=== PATIENT | female | born 1980 | race Caucasian/White ===

== ENCOUNTER 2022-01-14 08:42 | Emergency (ER) | payer OTHER, SELFPAY ==
--- NOTE | ~2022-01-14 | XR_ITS ---
EXAMINATION: XR chest 2V DATE: 01/14/2022 09:17 INDICATION: Shortness of breath. Chest pain. Dizziness. TECHNIQUE: Frontal and lateral views of the chest were obtained. COMPARISON: None. FINDINGS: The chest demonstrates clear lungs without pneumonia, pleural effusion, or pneumothorax. Th e heart size is normal. Surgical clips in the right upper quadrant are likely from cholecystectomy. T here are changes of anterior fusion procedure in cervical spine. IMPRESSION: 1. Normal chest. Reviewed, dictated and finalized at location A. IMPRESSION: 1. Normal chest.
[2022-01-14 08:44] VITALS: BP 131/77; PULSE 92; RESP 18; TEMP 36.6; O2SAT 99
--- NOTE | 2022-01-14 08:47 | ECG_ITS ---
Measurements Intervals [place] Rate: 110 P: 59 [place]: 146 QRS: -5 QRSD: 80 T: -9 QT: 325 QTc: 441 Interpretive Statements SINUS TACHYCARDIA LOW VOLTAGE EKG BASELINE ARTIFACT PRESENT NO PREVIOUS ECG AVAILABLE FOR COMPARISON Electronically Signed On 01-14-2022 16:49:18 CDT by Fe Chun M.D.
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
[2022-01-14 09:24] LABS: Basophils Percent Auto 0.4 % (0.2-1.2); Eosinophils Absolute Auto 0.2 K/mm3 (0-0.3); Eosinophils Percent Auto 1.5 % (0-4.4); Hematocrit 42.9 % (37.0-47.0); Hemoglobin 14.5 g/dL (12.0-15.0); Immature Granulocyte Absolute 0.02 K/mm3 (0.00-0.031); Immature Granulocyte Percent A 0.2 % (0-0.5); Lymphocytes Absolute Auto 1.99 K/mm3 (0.9-3.2); Lymphocytes Percent Auto 20.1 % (18.3-44.2); Mean Corpuscular HGB Conc 33.8 g/dl (32-36); Mean Corpuscular Hemoglobin 29.9 pg (26-34); Mean Corpuscular Volume 88.5 fl (80-100); Monocytes Absolute Auto 0.5 K/mm3 (0.1-0.6); Monocytes Percent Auto 5.1 % (2.6-8.5); Neutrophils Absolute Auto 7.2 K/mm3 (1.3-6.7); Neutrophils Percent Auto 72.7 % (45.5-73.1); Platelet Count Result 351 k/mm3 (150-375); Red Blood Count 4.85 M/mm3 (4.2-5.4); Red Cell Distribution Width 12.5 % (11.5-14.5); White Blood Count 9.9 K/mm3 (4.5-10.0)
--- NOTE | 2022-01-14 09:30 | ED.CHESTPAIN ---
HPI - Chest Pain General Chief Complaint: Chest Pain <YARELI Skaggs Last Filed: 01/14/22 13:31> Stated Complaint: jaw pain <YARELI Skaggs Last Filed: 01/14/22 13:31> Time Seen by Provider: 01/14/22 09:16 <YARELI Skaggs Last Filed: 01/14/22 13:31> Source: patient <YARELI Skaggs Last Filed: 01/14/22 13:31> Mode of arrival: ambulatory <YARELI Skaggs Last Filed: 01/14/22 13:31> Limitations: no limitations <YARELI Skaggs Last Filed: 01/14/22 13:31> History of Present Illness HPI narrative: This is a 41-year-old female that presents to the emergency department for chest pain. Reports intermittent episodes over the last week. Reports this morning her had made her angry. She started to have some substernal chest pain that was sharp in nature. Radiation to the left shoulder and jaw. Reports this lasted for a couple of minutes. Reports history of coronary artery disease and also PEs. She is supposed to be on chronic anticoagulation due to her clotting disorder, but is not due to cost. Denies fever, cough, or lower extremity edema. <Dorota Marrufo PA-C - Last Filed: 01/14/22 13:31> Related Data Home Medications: Home Medications Medication Instructions Recorded Confirmed albuterol sulfate INHALATION 01/14/22 alprazolam [Xanax] 0.5 mg BID 01/14/22 paroxetine HCl [Paxil] 20 mg PO DAILY 01/14/22 rivaroxaban [Xarelto] 20 mg 01/14/22 <YARELI Skaggs Last Filed: 01/14/22 13:31> Allergies/Adverse Reactions: Allergies Allergy/AdvReac Type Severity Reaction Status Date / Time hydromorphone [From Dilaudid] Allergy Anaphylaxis Verified 01/14/22 09:46 <YARELI Skaggs Last Filed: 01/14/22 13:31> Review of Systems Review of Systems: CONSTITUTIONAL: Denies fever CARDIOVASCULAR: Reports chest pain. Denies edema. RESPIRATORY: Denies cough or dyspnea. <Dorota Marrufo PA-C - Last Filed: 01/14/22 13:31> All systems reviewed & are unremarkable except as noted in HPI and below <Dorota Marrufo PA-C - Last Filed: 01/14/22 13:31> PMFSH Past Medical History Medical History: Medical History (Updated 01/14/22 @ 12:54 by Dorota Marrufo PA-C) History of coronary artery disease History of pulmonary embolism <Dorota Marrufo PA-C - Last Filed: 01/14/22 13:31> Social History Social History: Social History (Updated 01/14/22 @ 09:35 by Dorota Marrufo PA-C) Substance use: never <Dorota Marrufo PA-C - Last Filed: 01/14/22 13:31> Exam Narrative: GENERAL: Well-appearing, well-nourished, and in no acute distress. HEAD: Normocephalic, atraumatic. EYES: EOMI. ENT: Mucous membranes moist. Oropharynx without tonsillar hypertrophy exudate or other lesions. NECK: Supple. No adenopathy or masses. No carotid bruits or JVD CHEST: Clear to auscultation. No respiratory distress. No wheezes rales or rhonchi HEART: Regular rate and rhythm. No murmur heard. Normal peripheral pulses. EXTREMITIES: Normal range of motion. No edema. SKIN: Warm, dry, no rash. NEURO: No focal deficits. Alert and oriented x3. PSYCH: Normal mood and affect <Dorota Marrufo PA-C - Last Filed: 01/14/22 13:31> Course Vital Signs Vital signs: Vital Signs Temperature 36.6 C 01/14/22 08:44 Pulse Rate 92 01/14/22 08:44 Respiratory Rate 18 01/14/22 08:44 Blood Pressure 131/77 01/14/22 08:44 Pulse Oximetry 99 01/14/22 08:44 Temperature 36.6 C 01/14/22 08:44 Pulse Rate 91 01/14/22 12:16 Respiratory Rate 18 01/14/22 12:16 Blood Pressure 119/79 01/14/22 12:16 Pulse Oximetry 99 01/14/22 12:16 <Dorota Marrufo PA-C - Last Filed: 01/14/22 13:31> MDM - Chest Pain MDM Narrative Medical decision making narrative: Patient presents to the emergency department for an episode of chest pain today. Her vitals are stable. CBC and metabolic panel without concerning f
[2022-01-14 09:34] LABS: Alanine Aminotransferase 29 U/L (4-35); Albumin Level 4.2 g/dL (3.5-5.1); Alkaline Phosphatase 62 U/L (38-126); Anion Gap 4 mmol/L (8-16); Aspartate Amino Transferase 32 U/L (14-36); Bilirubin,Total 0.5 mg/dL (0.2-1.3); Blood Urea Nitrogen 9 mg/dL (7-17); Calcium 8.9 mg/dL (8.4-10.2); Carbon Dioxide 26 mmol/L (22-30); Chloride 107 mmol/L (98-107); Estimated CRCL calculation 110 ml/min; Estimated Glomerular Filt Rate > 60; Glucose 95 mg/dL (65-110); Lipase 90 U/L (23-300); Potassium 3.8 mmol/L (3.4-5.0); Sodium 137 mmol/L (137-145)
[2022-01-14 09:35] LABS: Partial Thromboplastin Time 25.4 SECONDS (22.3-36.8); Prothrombin Time 12.8 Seconds (11.1-14.7)
[2022-01-14 09:45] LABS: Troponin I < 0.012 ng/mL (0.000-0.034)
[2022-01-14 09:48] LABS: D Dimer 0.28 ug/mL (<0.48)
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
[2022-01-14 10:55] VITALS: BP 113/78; PULSE 73; RESP 16; O2SAT 100
[2022-01-14 11:19] VITALS: BP 119/62; PULSE 83; RESP 20; O2SAT 100
[2022-01-14 11:20] VITALS: PULSE 85
[2022-01-14] MEDS: ALPRAZolam (*CRX) 0.5 MG TABLET PO (11:31)
--- NOTE | 2022-01-14 11:34 | PC.NURSE ---
Pt medicated per request and PA order. Pt states she feels pressure in her chest that radiates to her jaw and arm. States she feels stressed .
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
[2022-01-14 12:16] VITALS: BP 119/79; PULSE 91; RESP 18; O2SAT 99
[2022-01-14 12:20] LABS: Troponin I < 0.012 ng/mL (0.000-0.034)
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
--- NOTE | 2022-01-14 13:22 | PC.NURSE ---
PA and care coordination made aware of elopement.
== END 2022-01-14 13:23 | disposition home or self-care (01) ==
PROVIDERS: Physician Assistant; Emergency Provider Emergency Medicine; PCP Family Medicine
DX: R07.2 Precordial pain (principal); I25.10 Atherosclerotic heart disease of native coronary artery without angina pectoris; Z86.711 Personal history of pulmonary embolism; T45.516A Underdosing of anticoagulants, initial encounter; Z91.120 Patient's intentional underdosing of medication regimen due to financial hardship; R00.0 Tachycardia, unspecified
CPT/HCPCS: 36415; 71046; 80053; 83690; 84484; 85025; 85380; 85610; 85730; 93005; 99284; A9270

== ENCOUNTER 2022-01-14 16:07 | Emergency (ER) | payer OTHER, SELFPAY ==
--- NOTE | ~2022-01-14 | CT_ITS ---
EXAMINATION: CTA chest PE protocol DATE: 01/14/2022 19:13 INDICATION: Chest pain. Factor VIII disorder. TECHNIQUE: Computed tomography (CT) pulmonary angiogram of the chest was performed with 100 mL Omnipa que-350 intravenous contrast. Additional 3D reconstructions utilizing coronal maximum intensity proje ction (MIP) were performed. Automated exposure control and iterative reconstruction technique were em ployed. The dose-length product was 587.57 mGy-cm. COMPARISON: None FINDINGS: Excellent contrast opacification of the pulmonary arteries. There is mild streak artifact from dense contrast in the superior vena cava and right atrium. No significant motion living diagnostic quality study which demonstrates no pulmonary embolism. No pneumonia, pulmonary edema, pleural effusion or pn eumothorax. Heart size is normal. No pericardial effusion. Thoracic aorta is normal in caliber with n o dissection. No pathologically enlarged thoracic lymphadenopathy. Cholecystectomy clips the gallblad nova fossa. C6-C7 anterior spinal fusion with anterior plate and screw fixation. Mild thoracic spondyl osis. IMPRESSION: 1. No pulmonary embolism or other acute cardiopulmonary disease. Reviewed, dictated and finalized at location A.
--- NOTE | 2022-01-14 16:10 | ECG_ITS ---
Measurements Intervals [place] Rate: 119 P: 61 [place]: 135 QRS: 15 QRSD: 81 T: 57 QT: 339 QTc: 478 Interpretive Statements SINUS TACHYCARDIA NONSPECIFIC T-WAVE ABNORMALITY ABNORMAL RHYTHM ECG COMPARED TO ECG 01/14/2022 08:52:16 T-WAVE ABNORMALITY NOW PRESENT Electronically Signed On 01-15-2022 14:09:49 CDT by Kurt Pérez M.D.
[2022-01-14 16:13] VITALS: BP 154/95; PULSE 102; RESP 17; TEMP 36.8; O2SAT 98
[2022-01-14 16:24] LABS: Basophils Absolute Auto 0.1 K/mm3 (0.0-0.1); Basophils Percent Auto 0.4 % (0.2-1.2); Eosinophils Absolute Auto 0.1 K/mm3 (0-0.3); Eosinophils Percent Auto 0.8 % (0-4.4); Hematocrit 43.7 % (37.0-47.0); Hemoglobin 14.7 g/dL (12.0-15.0); Immature Granulocyte Absolute 0.03 K/mm3 (0.00-0.031); Immature Granulocyte Percent A 0.2 % (0-0.5); Lymphocytes Absolute Auto 3.17 K/mm3 (0.9-3.2); Mean Corpuscular HGB Conc 33.6 g/dl (32-36); Mean Corpuscular Hemoglobin 30.3 pg (26-34); Mean Corpuscular Volume 90.1 fl (80-100); Mean Platelet Volume 9.3 fl (7.4-10.4); Monocytes Absolute Auto 0.5 K/mm3 (0.1-0.6); Monocytes Percent Auto 3.6 % (2.6-8.5); Neutrophils Absolute Auto 9.4 K/mm3 (1.3-6.7); Platelet Count Result 400 k/mm3 (150-375); Red Blood Count 4.85 M/mm3 (4.2-5.4); Red Cell Distribution Width 12.4 % (11.5-14.5); White Blood Count 13.2 K/mm3 (4.5-10.0)
[2022-01-14 16:33] LABS: Alanine Aminotransferase 29 U/L (4-35); Albumin Level 4.6 g/dL (3.5-5.1); Alkaline Phosphatase 62 U/L (38-126); Anion Gap 8 mmol/L (8-16); Aspartate Amino Transferase 29 U/L (14-36); Bilirubin,Total 0.4 mg/dL (0.2-1.3); Blood Urea Nitrogen 7 mg/dL (7-17); Calcium 9.3 mg/dL (8.4-10.2); Carbon Dioxide 22 mmol/L (22-30); Chloride 108 mmol/L (98-107); Estimated CRCL calculation 109 ml/min; Estimated Glomerular Filt Rate > 60; Glucose 148 mg/dL (65-110); Lipase 91 U/L (23-300); Potassium 3.3 mmol/L (3.4-5.0); Prothrombin Time 13.1 Seconds (11.1-14.7); Sodium 138 mmol/L (137-145)
[2022-01-14 16:34] LABS: Partial Thromboplastin Time 26.2 SECONDS (22.3-36.8)
[2022-01-14 16:45] LABS: Troponin I < 0.012 ng/mL (0.000-0.034)
[2022-01-14 17:46] VITALS: BP 126/72; PULSE 89; RESP 16; O2SAT 99
[2022-01-14 18:01] VITALS: BP 124/79; PULSE 90
[2022-01-14 18:16] VITALS: BP 135/81; PULSE 96
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
[2022-01-14 18:37] VITALS: BP 133/77; PULSE 82; O2SAT 100
[2022-01-14] MEDS: LORazepam (*CRX) 1 MG TABLET PO (18:47)
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
[2022-01-14 19:47] LABS: Troponin I < 0.012 ng/mL (0.000-0.034)
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
== END 2022-01-14 20:17 | disposition home or self-care (01) ==
PROVIDERS: Emergency Medicine; Emergency Provider Emergency Medicine; PCP Family Medicine
DX: R07.89 Other chest pain (principal); I25.10 Atherosclerotic heart disease of native coronary artery without angina pectoris; Z86.711 Personal history of pulmonary embolism; Z79.01 Long term (current) use of anticoagulants; R00.0 Tachycardia, unspecified; R94.31 Abnormal electrocardiogram [ECG] [EKG]
CPT/HCPCS: 36415; 71046; 71275; 80053; 83690; 84484; 85025; 85380; 85610; 85730; 93005; 99284; A9270; Q9967

== ENCOUNTER 2022-01-22 09:23 | Emergency (ER) | payer OTHER, SELFPAY ==
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
[2022-01-22 09:55] VITALS: BP 125/78; PULSE 92; RESP 14; TEMP 36.6; O2SAT 97
[2022-01-22 10:08] VITALS: PULSE 98; RESP 19; O2SAT 100
[2022-01-22 10:18] VITALS: BP 135/88; PULSE 97; RESP 19; O2SAT 100
[2022-01-22 10:21] LABS: Basophils Percent Auto 0.3 % (0.2-1.2); Eosinophils Absolute Auto 0.1 K/mm3 (0-0.3); Hematocrit 45.1 % (37.0-47.0); Immature Granulocyte Absolute 0.04 K/mm3 (0.00-0.031); Immature Granulocyte Percent A 0.3 % (0-0.5); Lymphocytes Absolute Auto 2.45 K/mm3 (0.9-3.2); Lymphocytes Percent Auto 18.3 % (18.3-44.2); Mean Corpuscular HGB Conc 33.3 g/dl (32-36); Mean Corpuscular Hemoglobin 29.9 pg (26-34); Mean Corpuscular Volume 89.8 fl (80-100); Mean Platelet Volume 9.5 fl (7.4-10.4); Monocytes Absolute Auto 0.5 K/mm3 (0.1-0.6); Monocytes Percent Auto 3.6 % (2.6-8.5); Neutrophils Absolute Auto 10.3 K/mm3 (1.3-6.7); Neutrophils Percent Auto 76.5 % (45.5-73.1); Platelet Count Result 330 k/mm3 (150-375); Red Blood Count 5.02 M/mm3 (4.2-5.4); Red Cell Distribution Width 12.7 % (11.5-14.5); White Blood Count 13.4 K/mm3 (4.5-10.0)
[2022-01-22 10:30] VITALS: PULSE 88; RESP 13; O2SAT 100
[2022-01-22 10:32] LABS: Alanine Aminotransferase 31 U/L (4-35); Albumin Level 4.3 g/dL (3.5-5.1); Alkaline Phosphatase 61 U/L (38-126); Anion Gap 7 mmol/L (8-16); Aspartate Amino Transferase 31 U/L (14-36); Bilirubin,Total 0.3 mg/dL (0.2-1.3); Blood Urea Nitrogen 6 mg/dL (7-17); Carbon Dioxide 23 mmol/L (22-30); Chloride 110 mmol/L (98-107); Estimated Glomerular Filt Rate > 60; Glucose 103 mg/dL (65-110); Potassium 3.6 mmol/L (3.4-5.0); Sodium 140 mmol/L (137-145)
[2022-01-22 10:45] VITALS: PULSE 95; RESP 17; O2SAT 100
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
[2022-01-22] MEDS: ACETAMINOPHEN 500 MG TABLET 1000 MG PO (11:12)
[2022-01-22] MEDS: SODIUM CHLORIDE 0.9% IV 1,000 ML 999 ML IV CONT (11:14)
[2022-01-22] MEDS: HEPATITIS B VIRUS VACCINE 10 MCG/0.5 ML SYRINGE 20 MCG IM (15:01)
[2022-01-22 15:07] LABS: INR 1.1; Prothrombin Time 13.3 Seconds (11.1-14.7)
[2022-01-22 15:08] LABS: Partial Thromboplastin Time 25.7 SECONDS (22.3-36.8)
[2022-01-22] MEDS: DOXYCYCLINE HYCLATE 100 MG TABLET PO (15:22)
[2022-01-22] MEDS: levonorgestreL 1.5 MG TABLET PO (15:22)
[2022-01-22] MEDS: metroNIDAZOLE 250 MG TABLET 500 MG PO (15:23)
[2022-01-22] MEDS: TETANUS,DIPHTHERIA,AC PERTUSSIS ADULT (0.5 ML) BOOSTRIX IM (15:25)
[2022-01-22 15:30] LABS: Add Urine Microscopic? NO; Appearance Urine Clear (Clear); Bilirubin Urine Negative (Negative); Blood Urine Negative (Negative); Color Urine Yellow (Yellow); Glucose Urine UA Negative (Negative); Ketones Urine Negative (Negative); Leukocyte Esterase Ur Negative LEU/UL (Negative); Nitrate Urine Negative (Negative); Protein Urine Negative (Negative); Urobilinogen Urine Negative mg/dL (<2.0)
[2022-01-22] MEDS: cefTRIAXone 1 GM VIAL 0.5 GM IM (15:30)
[2022-01-22 15:51] LABS: Hepatitis B Surface Antigen Negative (Negative)
[2022-01-22 15:56] LABS: HIV 1/2 Ab P24 Ag Result Negative (Negative); Hepatitis B Core IgM Result Negative (Negative)
[2022-01-22 16:25] LABS: Hepatitis B Surface Anti Res Positive
[2022-01-22] MEDS: EMTRICITABINE-TENOFOVIR 100 MG-150 MG TABLET 2 TAB PO (16:38)
[2022-01-22] MEDS: RALTEGRAVIR 400 MG TABLET PO (16:38)
[2022-01-22 17:01] VITALS: BP 132/77; PULSE 87; RESP 15; O2SAT 100
[2022-01-24 20:03] LABS: Hepatitis B Core Ab Total Nonreactive (Nonreactive)
== END 2022-01-22 16:55 | disposition home or self-care (01) ==
PROVIDERS: Emergency Provider Emergency Medicine; PCP Family Medicine
DX: T74.21XA Adult sexual abuse, confirmed, initial encounter (principal); S09.90XA Unspecified injury of head, initial encounter; S19.9XXA Unspecified injury of neck, initial encounter; Z23 Encounter for immunization; I25.10 Atherosclerotic heart disease of native coronary artery without angina pectoris; Z86.711 Personal history of pulmonary embolism; Y07.9 Unspecified perpetrator of maltreatment and neglect; Y04.8XXA Assault by other bodily force, initial encounter
CPT/HCPCS: 36415; 70450; 70498; 72125; 80053; 81003; 81025; 85025; 85610; 85730; 86703; 86704; 86705; 86706; 87070; 87077; 87340; 87491; 87591; 87808; 90471; 90715; 90744; 96360; 96372; 99285; A9270; G0010; G0432; J0696; J7030; Q9967

== ENCOUNTER 2023-05-15 17:05 | Emergency (ER) | payer OTHER, SELFPAY ==
--- NOTE | ~2023-05-15 | CT_ITS ---
EXAMINATION: CT abdomen pelvis w con DATE: 05/15/2023 19:41 INDICATION: Pyelonephritis. Low back pain. Low pelvic pain. Urinary tract infection. TECHNIQUE: Computed tomography (CT) of the abdomen and pelvis was performed with 100 mL Omnipaque 350 intravenous contrast. Automated exposure control and iterative reconstruction technique were employe d. The dose-length product was 869.38 mGy-cm. COMPARISON: None. FINDINGS: The visualized portions of the lung bases demonstrate minimal atelectasis. No pleural effus ion. The heart size is normal. No pericardial effusion. There are changes of cholecystectomy. The debbi er, spleen, pancreas, and adrenal glands are normal. There is a 7 mm cyst in right kidney. There is a 2 mm stone in right kidney. There are two 2 mm stones in left kidney. There is an intrauterine devic e in expected position. The bladder is decompressed. There are no dilated loops of bowel. There are c hanges of appendectomy. There is a 3.2 cm cyst in right ovary, likely a follicular cyst. There are no pathologically enlarged lymph nodes. There is no free intraperitoneal fluid. There is mild thoracic and lumbar spondylosis. IMPRESSION: 1. Small bilateral nonobstructing kidney stones. Reviewed, dictated and finalized at location E.
[2023-05-15 17:07] VITALS: BP 134/90; PULSE 98; RESP 20; TEMP 37.4; O2SAT 98
--- NOTE | 2023-05-15 17:25 | ED.ABDPAIN ---
HPI - Abdominal Pain General Chief Complaint: Urogenital-Female Stated Complaint: Urinary pain/abdominal pain Time Seen by Provider: 05/15/23 17:24 Source: patient Mode of arrival: ambulatory Limitations: no limitations History of Present Illness HPI narrative: 42-year-old female history of possibly HIV, anxiety /depression, coronary artery disease with negative cardiac catheterization, multiple pulmonary embolisms/DVT over many years and currently on Xarelto,status post cholecystectomy, status post appendectomy, with low-normal surgeries and 1 section, recurrent urinary tract infections present to the ER with 3 weeks history of -- low back pain, bilateral flank pain and suprapubic pain. -- Has dysuria and hematuria -- fever with chills. -- nausea and vomiting patient has an intrauterine contraceptive device MD elicited complaint: abdominal pain Pertinent past history: past UTI Onset (ago): week(s) ( Symptoms approximately 3 weeks) Pain Consistency: constant Location: suprapubic and other ( lower back, bilateral CV angle) Severity: severe Quality: aching Radiation: none Migration to: no migration Exacerbating factors: nothing Relieving factors: nothing Associated symptoms: nausea and vomiting Related Data Patient : No Home Medications Medication Instructions Recorded Confirmed albuterol sulfate 90 mcg/actuation inhalation 01/14/22 aerosol inhaler alprazolam 0.5 mg tablet (Xanax) 0.5 mg BID 01/14/22 paroxetine HCl 40 mg tablet (Paxil) 20 mg PO DAILY 01/14/22 rivaroxaban 20 mg tablet (Xarelto) 20 mg 01/14/22 Allergies Allergy/AdvReac Type Severity Reaction Status Date / Time hydromorphone [From Dilaudid] Allergy Anaphylaxis Verified 05/15/23 19:06 Review of Systems Review of Systems: All systems reviewed & are unremarkable except as noted in HPI and below Constitutional: Constitutional: Reports as per HPI and Reports no additional constitutional complaints Eyes: Eyes: Reports as per HPI and Reports no additional eye complaints ENT: Reports system reviewed and no additional complaints, except as documented and Reports as per HPI Cardiovascular: Cardiovascular: Reports as per HPI and Reports no additional cardiovascular complaints Respiratory: Respiratory: Reports as per HPI and Reports no additional respiratory complaints Gastrointestinal: Gastrointestinal: Reports as per HPI, Reports no additional gastrointestinal complaints, Reports nausea and Reports vomiting Genitourinary: Genitourinary: Reports no additional female genitourinary complaints, Reports hematuria and Reports dysuria Musculoskeletal: Musculoskeletal: Reports no additional musculoskeletal complaints and Reports as per HPI Integumentary/Breasts: Skin/Breast: Reports system reviewed and no additional complaints, except as docu and Reports as per HPI Neurologic: Reports system reviewed and no additional complaints, except as documented and Reports as per HPI Psychiatric: Psychiatric: Reports no additional psychiatric complaints and Reports as per HPI Endocrine: Endocrine: Reports no additional endocrine complaints and Reports as per HPI Hematologic/Lymphatic: Hematologic/Lymphatic: Reports no additional hematologic/lymphatic complaints and Reports as per HPI Allergic/Immunologic: Allergic/Immunologic: Reports no additional allergic/immunologic complaints and Reports as per HPI PMF Past Medical History Medical History (Updated 05/15/23 @ 20:20 by Javier Null MD) Clotting disorder History of coronary artery disease History of pulmonary embolism Surgical History Surgical History (Updated 05/15/23 @ 18:11 by Javier Null MD) Hx of cholecystectomy Previous section S/P appendectomy Social History Social History (Updated 05/15/23 @ 18:12 by Javier Null MD) Social History: vapes Substance use: never Exam Const: General: no acute distress Nutritional Appearanc
[2023-05-15] MEDS: KETOROLAC 30 MG/ML VIAL (*BKC) IV PUSH (18:03)
[2023-05-15] MEDS: PROCHLORPERAZINE EDISYLATE 10 MG/2 ML VIAL IV PUSH (18:04)
[2023-05-15 18:17] LABS: Basophils Absolute Auto 0.05 K/mm3 (0.00-0.10); Basophils Percent Auto 0.5 % (0.0-1.0); Eosinophils Absolute Auto 0.08 K/mm3 (0.02-0.50); Eosinophils Percent Auto 0.7 % (1.0-6.0); Hematocrit 38.9 % (35.0-49.0); Hemoglobin 13.2 g/dL (12.0-15.0); Immature Granulocyte Absolute 0.04 K/mm3 (0.00-0.00); Immature Granulocyte Percent A 0.4 % (0.0-0.0); Mean Corpuscular HGB Conc 33.9 g/dL (32.0-36.0); Mean Corpuscular Hemoglobin 30.1 pg (27.0-31.0); Mean Corpuscular Volume 88.8 fL (78.0-102.0); Mean Platelet Volume 9.6 fl (9.2-11.8); Monocytes Absolute Auto 0.48 K/mm3 (0.10-0.90); Monocytes Percent Auto 4.4 % (2.0-11.0); Neutrophils Absolute Auto 7.8 K/mm3 (1.7-7.2); Platelet Count Result 307 K/mm3 (150-420); Red Blood Count 4.38 M/mm3 (4.20-5.40); Red Cell Distribution Width 12.2 % (11.6-14.4); White Blood Count 10.9 K/mm3 (4.8-10.8)
[2023-05-15 18:19] LABS: Bilirubin Urine 2+ (Negative); Blood Urine 2+ (Negative); Glucose Urine UA 1+ (Negative); Ketones Urine Trace (Negative); Leukocyte Esterase Ur 2+ LEU/UL (Negative); Nitrate Urine Positive (Negative); Protein Urine 3+ (Negative); Urobilinogen Urine >=8.0 mg/dL (0.2-1.0)
[2023-05-15 18:26] LABS: Add Urine Microscopic? YES; Appearance Urine Slightly Cloudy (Clear); Bacteria Urine 1+ /hpf; Color Urine Dark Orange (Yellow); Squamous Epithelial Cell Urine Few /hpf (Few)
[2023-05-15 18:30] LABS: INR 0.9; Prothrombin Time 10.3 Seconds (9.50-12.10)
[2023-05-15 18:36] LABS: Lactic Acid Reflex 0.8 mmol/L (0.4-2.0)
[2023-05-15 18:38] LABS: Pregnancy On Board Control Positive; Urine Pregnancy Test Negative
[2023-05-15 18:45] LABS: Alanine Aminotransferase 100 U/L (14-59); Albumin Level 3.6 g/dL (3.4-5.0); Alkaline Phosphatase 74 U/L (46-116); Anion Gap 9 mmol/L (8-16); Aspartate Amino Transferase 37 U/L (15-37); Bilirubin,Total 0.3 mg/dL (0.00-1.00); Blood Urea Nitrogen 6 mg/dL (7-18); Calcium 8.9 mg/dL (8.5-10.1); Carbon Dioxide 27 mmol/L (21-32); Chloride 105 mmol/L (98-108); Estimated CRCL calculation 102 ml/min; Estimated Glomerular Filt Rate > 60; Glucose 93 mg/dL (70-99); Lipase 37 U/L (16-77); Osmolality Calculated 289 mOsm/kg (285-295); Potassium 3.8 mmol/L (3.5-5.1); Sodium 141 mmol/L (136-145); Total Protein 6.9 g/dL (6.4-8.2)
[2023-05-15] MEDS: levoFLOXacin 500 MG/D5W 100 ML 500 MG/100 ML BAG 100 MG IVPB (19:09)
[2023-05-15 19:12] VITALS: BP 130/75; PULSE 88; RESP 18; TEMP 37.1; O2SAT 97
--- NOTE | 2023-05-15 19:46 | PC.NURSE ---
Pt back from CT scan, up to BR per self, IV Levaquin infusing as per order, pt wanting snack, crackers and cranberry juice given per request. Pt has call wolfe at side, awaiting CT results.
[2023-05-15 20:18] VITALS: BP 132/78; PULSE 78; RESP 18; TEMP 37.1; O2SAT 99
--- NOTE | 2023-05-19 12:19 | PC.NURSE ---
culture report for gonorrhoeae/trachomatis reviewed. not detected. no change in plan of care needed.
== END 2023-05-15 20:24 | disposition home or self-care (01) ==
PROVIDERS: Emergency Provider Internal Medicine Critical Care Medicine; PCP Family Medicine
DX: N30.01 Acute cystitis with hematuria (principal); R10.30 Lower abdominal pain, unspecified; I25.10 Atherosclerotic heart disease of native coronary artery without angina pectoris; F41.9 Anxiety disorder, unspecified; F32.A Depression, unspecified; Z86.711 Personal history of pulmonary embolism; Z79.01 Long term (current) use of anticoagulants; Z90.49 Acquired absence of other specified parts of digestive tract
CPT/HCPCS: 36415; 74177; 80053; 81001; 81025; 83605; 83690; 85025; 85610; 87077; 87086; 87088; 87491; 87591; 96365; 96375; 99284; J0780; J1885; J1956; Q9967

== ENCOUNTER 2025-10-10 19:06 | Emergency (ER) | payer MEDICAID, SELFPAY ==
--- NOTE | ~2025-10-10 | XR_ITS ---
Examination: XR chest 2V Clinical History: chest pain Comparison: 01/14/2002 Technique: PA and Lateral Findings: Cardiomediastinal silhouette normal size and configuration. Lungs clear. No acute bony abnormality. IMPRESSION: 1. No acute cardiopulmonary findings. Reviewed, dictated and finalized at location R. RE CONSULTANT
--- NOTE | ~2025-10-10 | CT_ITS ---
EXAMINATION: CTA chest PE protocol DATE: 10/10/2025 21:21 INDICATION: Chest pain. TECHNIQUE: Computed tomography angiography (CTA) of the chest was performed with 100 mL Omnipaque-350 intravenous contrast timed to evaluate the pulmonary arteries. Coronal maximum intensity projection 3D-reconstructions were created by the technologist. Automated exposure control and iterative reconstruction technique were employed. The dose-length product was 640.09 mGy-cm. COMPARISON: Chest CT 01/14/2022 FINDINGS: The lungs demonstrate mild atelectasis. There is a pneumatocele in right lower lobe. No pleural effusion. The heart size is normal. No pericardial effusion. There is no pulmonary embolus. There are changes of cholecystectomy. There is mild thoracic spondylosis. IMPRESSION: 1. No pulmonary embolus. Reviewed, dictated and finalized at location E. TROPHYSIOLOGIST IMPRESSION: 1. No pulmonary embolus.
--- NOTE | 2025-10-10 19:13 | ECG_ITS ---
Test Date: 2025-10-10 19:21:02 Measurements Intervals [place] Rate: 72 P: 56 GA: 158 QRS: 17 QRSD: 86 T: 40 QT: 406 QTc: 446 Interpretive Statements SINUS RHYTHM BASELINE ARTIFACT- V5 NORMAL ECG No previous ECG available for comparison Electronically Signed On 10-10-2025 19:28:18 [facility] by Hiram Maki D.O.
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
[2025-10-10 19:16] VITALS: BP 117/84; PULSE 76; RESP 20
[2025-10-10 19:31] VITALS: BP 124/78; PULSE 76; RESP 20; TEMP 36.8; O2SAT 96
[2025-10-10] MEDS: SODIUM CHLORIDE 0.9% IV 1,000 ML 999 ML IV CONT (19:35)
[2025-10-10] MEDS: NITROGLYCERIN SL 0.4 MG TABLET SUBLINGUAL (19:37)
[2025-10-10 19:58] VITALS: BP 117/77; PULSE 99; RESP 20; O2SAT 18
[2025-10-10 20:05] LABS: Hematocrit 40.2 % (37.0-47.0); Hemoglobin 13.5 g/dL (12.0-15.0); Immature Granulocyte Percent A 0.4 % (0-0.5); Lymphocytes Absolute Auto 3.23 K/mm3 (0.9-3.2); Mean Corpuscular HGB Conc 33.6 g/dl (32-36); Mean Corpuscular Hemoglobin 29.0 pg (26-34); Mean Corpuscular Volume 86.3 fl (80-100); Nucleated Red Blood Cells Absolute Auto 0.000 K/mm3 (0.0-0.012); Nucleated Red Blood Cells Perc 0.0 % (0.0-0.2); Platelet Count Result 337 k/mm3 (150-375); Red Blood Count 4.66 M/mm3 (4.2-5.4); White Blood Count 10.2 K/mm3 (4.5-10.0)
[2025-10-10 20:24] LABS: Fractional Inspired Oxygen 21 %; HCO3 VBG 25.8 mEq/l (24.0-30.0); PCO2 VBG 46.0 mmHg (42.0-48.0); PO2 VBG 30.4 mmHg (35.0-45.0); pH VBG 7.367 (7.300-7.400)
[2025-10-10 20:26] VITALS: BP 117/76; PULSE 65; RESP 22
[2025-10-10 20:26] LABS: INR 1.0; Prothrombin Time 13.3 Seconds (11.1-14.7)
[2025-10-10 20:27] LABS: Alanine Aminotransferase 46 U/L (6-35); Albumin Level 4.1 g/dL (3.5-5.1); Alkaline Phosphatase 59 U/L (38-126); Anion Gap 4 mmol/L (4-12); Aspartate Amino Transferase 40 U/L (14-36); Bilirubin,Total 0.8 mg/dL (0.2-1.3); Blood Urea Nitrogen 7 mg/dL (7-17); Calcium 9.5 mg/dL (8.4-10.2); Carbon Dioxide 25 mmol/L (22-30); Chloride 107 mmol/L (98-107); Estimated Glomerular Filt Rate > 60; Glucose 86 mg/dL (65-110); Lipase 100 U/L (23-300); Magnesium 1.8 mg/dL (1.6-2.3); Partial Thromboplastin Time 26.7 Seconds (22.3-36.8); Potassium 3.4 mmol/L (3.4-5.0); Sodium 136 mmol/L (137-145); Total Protein 7.0 g/dL (6.3-8.2)
[2025-10-10] MEDS: ONDANSETRON INJ 4 MG/2 ML VIAL IV PUSH (20:32)
[2025-10-10 20:33] VITALS: BP 126/69; PULSE 79; RESP 20; O2SAT 84
[2025-10-10 20:38] LABS: NT Pro B Type Natriuretic Pept 31 pg/mL (19.9-100); Troponin I < 0.012 ng/mL (0.000-0.034)
[2025-10-10 20:41] LABS: Influenza A QL RT-PCR Negative (Negative); Influenza B QL RT-PCR Negative (Negative); RSV RNA, RT-PCR Negative (Negative); SARS-CoV-2 RNA PCR Negative (Negative)
[2025-10-10 20:58] LABS: Thyroid Stimulating Hormone Reflex 1.690 uIU/mL (0.465-4.68)
--- NOTE | 2025-10-10 21:45 | PC.NURSE ---
patient removed iv herself and stated she was leaving because Im in pain and no one gives a shit
== END 2025-10-10 22:03 | disposition left against medical advice (07) ==
PROVIDERS: Emergency Provider Student in an Organized Health Care Education/Training Program; PCP Family Medicine
DX: R07.9 Chest pain, unspecified (principal); Z86.711 Personal history of pulmonary embolism; D66 Hereditary factor VIII deficiency; I25.10 Atherosclerotic heart disease of native coronary artery without angina pectoris; T45.516A Underdosing of anticoagulants, initial encounter; Z91.141 Patient's other noncompliance with medication regimen due to financial hardship
CPT/HCPCS: 36415; 71046; 71275; 80053; 82803; 83690; 83735; 83880; 84443; 84484; 85025; 85610; 85730; 87637; 93005; 96361; 96374; 99284; A9270; J2405; J7030; Q9967